=== PATIENT | male | born 1950 | race Caucasian/White ===

== ENCOUNTER 2023-11-14 12:24 | Day surgery (SDC) | payer MEDICARE ==
[~2023-11-14 12:24] MED LIST: Metoclopramide 10 MG/2 ML SDV IV PRN
[2023-11-14] MEDS: Sodium Chloride 0.9% 1,000 ML IV SCH (13:09)
[2023-11-14] MEDS ORDERED: Propofol 1,000 MG/100 ML SDV ONE (14:20)
[2023-11-14 14:31] VITALS: BP 116/76; PULSE 73
== END 2023-11-14 15:16 ==
LOC: LB.SDS 12:24
PROVIDERS: ATTEND Surgery
DX: Z12.11 Encounter for screening for malignant neoplasm of colon (principal); R19.5 Other fecal abnormalities; E78.00 Pure hypercholesterolemia, unspecified
CPT/HCPCS: J2704; J7030